=== PATIENT | female | born 1945 | race Two or more races ===

== ENCOUNTER 2024-07-07 15:09 | Inpatient (IN) | payer BC ==
[~2024-07-07] VITALS: Ht 162.6 cm; Wt 78.5 kg
[2024-07-07 16:28] LABS: BASOPHILS % (AUTO) 0.3 % (0.0-2.0); EOSINOPHILS % (AUTO) 0.4 % (0.0-6.0); HEMATOCRIT 44 % (33-45); HEMOGLOBIN 14.6 g/dL (11.5-14.8); LYMPHOCYTES # (AUTO) 0.5 K/uL (0.8-4.8); LYMPHOCYTES % (AUTO) 5.7 % (20.0-44.0); MEAN CORPUSCULAR HEMOGLOBIN 31 PG (26.0-33.0); MEAN CORPUSCULAR HGB CONC 33 g/dl (31.0-36.0); MEAN CORPUSCULAR VOLUME 92 fL (82-100); MONOCYTES # (AUTO) 1.2 K/uL (0.1-1.30); MONOCYTES % (AUTO) 12.1 % (2.0-12.0); NEUTROPHILS # (AUTO) 7.8 K/uL (1.8-8.9); NEUTROPHILS % (AUTO) 81.5 % (43.0-81.0); PLATELET COUNT (AUTO) 282 K/uL (150-450); RED BLOOD CELL COUNT(AUTO) 4.78 MIL/uL (4.0-5.2); RED CELL DISTRIBUTION WIDTH 13.9 % (11.5-15.0); WHITE BLOOD COUNT (AUTO) 9.5 K/uL (4.3-11.0)
[2024-07-07 16:42] LABS: CALCIUM, SERUM 9.4 mg/dL (8.5-10.1); CARBON DIOXIDE 28 mmol/L (21-32); CHLORIDE 99 mmol/L (98-107); CREATININE 0.9 mg/dL (0.6-1.3); GLUCOSE 152 mg/dL (74-106); INR 1.11 (0.91-1.10); PARTIAL THROMBOPLASTIN TIME 30.8 SEC (24.3-34.3); POTASSIUM 3.9 mmol/L (3.5-5.1); PROTHROMBIN TIME 11.7 SECS (9.2-11.1); SODIUM SERUM 135 mmol/L (136-145); UREA NITROGEN, BLOOD 13 mg/dL (7-18)
[2024-07-07 16:47] LABS: ACETAMINOPHEN 0 ug/ml (10-30); ALCOHOL, BLOOD < 3 mg/dL (0-10); SALICYLATE < 0.2 mg/dL (2.8-20.0)
[2024-07-07] MEDS: IV NS 0.9% 500 ML BAG IV ONE (18:16)
[2024-07-07 18:22] LABS: APPEARANCE,URINE CLEAR (CLEAR); BILIRUBIN,URINE NEGATIVE (NEGATIVE); BLOOD, URINE TRACE-INTA Ery/uL (NEGATIVE); COLOR,URINE YELLOW (YELLOW); KETONES,URINE NEGATIVE (NEGATIVE); LEUKOCYTE ESTERASE ,URINE NEGATIVE (NEGATIVE); NITRITE, URINE NEGATIVE (NEGATIVE); PROTEIN,URINE 1+ mg/dl (NEGATIVE); UGLUCOSE TRACE mg/dL (NEGATIVE)
[2024-07-07 18:37] LABS: AMPHETAMINE, URINE NEGATIVE (NEGATIVE); BARBITURATE, URINE NEGATIVE (NEGATIVE); BENZODIAZEPINE, URINE NEGATIVE (NEGATIVE); CANNABINOID, URINE NEGATIVE (NEGATIVE); COCCAINE, URINE NEGATIVE (NEGATIVE); OPIATE, URINE NEGATIVE (NEGATIVE); PHENCYCLIDINE SCREEN,URINE NEGATIVE (NEGATIVE)
[2024-07-07 18:50] LABS: ADD URINE CULTURE YES; BACTERIA,URINE 1+ /HPF (None Seen); RBC,URINE 0-2 /HPF (0-2); SQUAMOUS EPITHELIAL CELL,UR 0-2 /HPF (None Seen); WBC,URINE NONE SEEN /HPF (0-3)
[2024-07-07] MEDS ORDERED: MAGN400O6 PO (19:32)
[2024-07-07] MEDS ORDERED: TRAZ-182 PO (19:32)
[2024-07-07] MEDS ORDERED: ROSU40TA23 PO (19:32)
[2024-07-07] MEDS ORDERED: ACET325T53 PO (19:32)
[2024-07-07] MEDS ORDERED: CYAN500T64 PO (19:32)
[2024-07-07] MEDS ORDERED: BISA10SU11 RC (19:32)
[2024-07-07] MEDS ORDERED: IPRA3AMP23 NEB (19:32)
[2024-07-07] MEDS ORDERED: CETI10TA14 PO (19:32)
[2024-07-07] MEDS ORDERED: MONT10TA22 PO (19:32)
[2024-07-07] MEDS ORDERED: DONE5TAB34 PO (19:32)
[2024-07-07] MEDS ORDERED: CLOP75TA15 PO (19:32)
[2024-07-07] MEDS ORDERED: ALBU18HF2 IH (19:32)
[2024-07-07] MEDS ORDERED: MELA5TAB PO (19:32)
[2024-07-07] MEDS ORDERED: [UNRECOGNIZED DRUG - OTHER] PO (19:32)
[2024-07-07] MEDS ORDERED: MEMA10TA PO (19:32)
[2024-07-07] MEDS ORDERED: MAG-135 PO (19:32)
[2024-07-07] MEDS ORDERED: LOPE2CAP PO (19:32)
[2024-07-07] MEDS ORDERED: AL HYDROX PO PRN (21:00)
[2024-07-07] MEDS ORDERED: ONDANSETRON HCL/PF 4 MG/2 ML VIAL IVP PRN (21:00)
[2024-07-07] MEDS ORDERED: [UNRECOGNIZED DRUG - OTHER] PO PRN (21:00)
[2024-07-07] MEDS ORDERED: DEXTROSE 50%-WATER 50 ML DISP.SYRIN IV PRN (21:00)
[2024-07-07] MEDS ORDERED: MAGNESIUM HYDROXIDE 30 ML UDC PO PRN ×2 (21:00)
[2024-07-07] MEDS ORDERED: MAG HYDROX/AL HYDROX/SIMETH 30 ML UDC PO PRN (21:00)
[2024-07-07] MEDS ORDERED: SIMETH PO PRN (21:00)
[2024-07-07] MEDS ORDERED: MAG HYDROX PO PRN (21:00)
[2024-07-07] MEDS ORDERED: Z GUARD REMEDY 4 OZ OINT TP PRN (21:00)
[2024-07-07] MEDS ORDERED: Medication Not On Formulary EA (Melatonin 5 MG) PO SCH (22:00)
[2024-07-07 22:20] VITALS: BP 124/75; TEMP 98.4; O2SAT 95
[2024-07-07] MEDS: ENOXAPARIN SODIUM 40 MG/0.4 ML DISP.SYRIN SQ SCH (23:17)
[2024-07-07] MEDS: DONEPEZIL 5 MG TABLET PO SCH (23:17)
[2024-07-07] MEDS: CLOPIDOGREL BISULFATE 75 MG TABLET PO SCH (23:17)
[2024-07-07] MEDS: TRAZODONE 50 MG TABLET PO SCH (23:18)
[2024-07-07] MEDS: BLOOD SUGAR DIAGNOSTIC 1 EACH STRIP IN SCH (23:18)
[2024-07-07] MEDS: MONTELUKAST SODIUM (10MG) 10 MG TABLET PO SCH (23:19)
[2024-07-07] MEDS ORDERED: ALBUTEROL FS 2.5 MG/3 ML VIAL.NEB IH PRN (23:30)
[2024-07-07] MEDS: CEFTRIAXONE 1 G in IV D5W 50 ML IV SCH (23:41)
[2024-07-07] MEDS: CEFTRIAXONE 1GM BAG (ER ONLY) 50 ML IV ONE (23:42)
[2024-07-08] MEDS: IV D5/0.45 NACL 1,000 ML IV PRN (02:40)
[2024-07-08] MEDS: INSULIN REGULAR, HUMAN 100 UNIT/ML 3 ML VIAL SQ PRN (06:37)
[2024-07-08 06:52] LABS: BASOPHILS % (AUTO) 0.4 % (0.0-2.0); EOSINOPHILS % (AUTO) 0.5 % (0.0-6.0); HEMATOCRIT 42 % (33-45); HEMOGLOBIN 13.9 g/dL (11.5-14.8); LYMPHOCYTES # (AUTO) 0.7 K/uL (0.8-4.8); LYMPHOCYTES % (AUTO) 8.6 % (20.0-44.0); MEAN CORPUSCULAR HEMOGLOBIN 31 PG (26.0-33.0); MEAN CORPUSCULAR HGB CONC 33 g/dl (31.0-36.0); MEAN CORPUSCULAR VOLUME 93 fL (82-100); MONOCYTES # (AUTO) 0.8 K/uL (0.1-1.30); MONOCYTES % (AUTO) 9.6 % (2.0-12.0); NEUTROPHILS # (AUTO) 6.7 K/uL (1.8-8.9); NEUTROPHILS % (AUTO) 80.9 % (43.0-81.0); PLATELET COUNT (AUTO) 253 K/uL (150-450); RED BLOOD CELL COUNT(AUTO) 4.53 MIL/uL (4.0-5.2); RED CELL DISTRIBUTION WIDTH 13.8 % (11.5-15.0); WHITE BLOOD COUNT (AUTO) 8.3 K/uL (4.3-11.0)
[2024-07-08] MEDS: ACETAMINOPHEN 325 MG TABLET PO PRN (07:43)
[2024-07-08 07:55] LABS: ALANINE AMINOTRANSFERASE 55 U/L (12-78); ALBUMIN 2.7 g/dL (3.4-5.0); ALKALINE PHOSPHATASE 45 U/L (46-116); ASPARTATE AMINOTRANSFERASE 52 U/L (15-37); BILIRUBIN,TOTAL 0.6 mg/dL (0.2-1.0); CALCIUM, SERUM 8.9 mg/dL (8.5-10.1); CARBON DIOXIDE 24 mmol/L (21-32); CHLORIDE 103 mmol/L (98-107); CREATININE 0.8 mg/dL (0.6-1.3); GLUCOSE 143 mg/dL (74-106); MAGNESIUM 2.7 mg/dL (1.8-2.4); PHOSPHORUS 2.7 mg/dL (2.5-4.9); POTASSIUM 3.9 mmol/L (3.5-5.1); SODIUM SERUM 135 mmol/L (136-145); TOTAL PROTEIN, SERUM 7.1 g/dL (6.4-8.2); UREA NITROGEN, BLOOD 9 mg/dL (7-18)
[2024-07-08 08:00] VITALS: BP 124/81; TEMP 98.1; O2SAT 98
[2024-07-08] MEDS ORDERED: [UNRECOGNIZED DRUG - OTHER] PO SCH (09:00)
[2024-07-08] MEDS: CYANOCOBALAMIN 500 MCG TABLET PO SCH (09:28)
[2024-07-08] MEDS: MEMANTINE HCL 5 MG TABLET PO SCH (09:30)
[2024-07-08 12:22] LABS: CHOLESTEROL 106 mg/dL (<200); HDL CHOLESTEROL 51 mg/dL (40-60); LDL 48 mg/dL (0-99); TRIGLYCERIDES 54 mg/dL (30-150)
[2024-07-08 16:00] VITALS: BP 132/80; TEMP 98.2; O2SAT 96
[2024-07-08 20:00] VITALS: BP 120/71; TEMP 99.1; O2SAT 96
[2024-07-08] MEDS: IBUPROFEN 600 MG TABLET PO PRN (20:32)
[2024-07-09 08:00] VITALS: BP 111/66; TEMP 97.4; O2SAT 98
[2024-07-09 09:12] VITALS: BP 111/66; TEMP 97.4; O2SAT 98
[2024-07-09 10:00] LABS: CALCIUM, SERUM 9.4 mg/dL (8.5-10.1); CREATININE 0.7 mg/dL (0.6-1.3); MAGNESIUM 2.8 mg/dL (1.8-2.4); POTASSIUM 3.8 mmol/L (3.5-5.1)
[2024-07-09 10:01] LABS: BASOPHILS % (AUTO) 0.4 % (0.0-2.0); EOSINOPHILS # (AUTO) 0.2 K/uL (0.0-0.7); EOSINOPHILS % (AUTO) 2.7 % (0.0-6.0); HEMATOCRIT 44 % (33-45); HEMOGLOBIN 14.9 g/dL (11.5-14.8); LYMPHOCYTES # (AUTO) 0.6 K/uL (0.8-4.8); LYMPHOCYTES % (AUTO) 7.6 % (20.0-44.0); MEAN CORPUSCULAR HEMOGLOBIN 31 PG (26.0-33.0); MEAN CORPUSCULAR HGB CONC 34 g/dl (31.0-36.0); MEAN CORPUSCULAR VOLUME 93 fL (82-100); MONOCYTES # (AUTO) 0.7 K/uL (0.1-1.30); MONOCYTES % (AUTO) 9.3 % (2.0-12.0); NEUTROPHILS # (AUTO) 6.3 K/uL (1.8-8.9); PLATELET COUNT (AUTO) 279 K/uL (150-450); RED BLOOD CELL COUNT(AUTO) 4.77 MIL/uL (4.0-5.2); RED CELL DISTRIBUTION WIDTH 14.1 % (11.5-15.0); WHITE BLOOD COUNT (AUTO) 7.9 K/uL (4.3-11.0)
[2024-07-09] MEDS ORDERED: IOHEXOL-300 100 ML VIAL IV ONE (16:17)
[2024-07-09] MEDS ORDERED: IV NS 0.9% 250 ML IV ONE (16:17)
[2024-07-09 16:30] VITALS: BP 93/58; TEMP 98.8; O2SAT 96
[2024-07-09 20:00] VITALS: BP 122/67; TEMP 97.6; O2SAT 96
[2024-07-09] MEDS: COLCHICINE 0.6 MG TABLET PO ONE ×2 (20:20→21:59)
[2024-07-10 07:30] VITALS: BP 124/71; TEMP 97.2; O2SAT 99
[2024-07-10 07:40] LABS: BASOPHILS % (AUTO) 0.7 % (0.0-2.0); EOSINOPHILS # (AUTO) 0.2 K/uL (0.0-0.7); EOSINOPHILS % (AUTO) 3.4 % (0.0-6.0); HEMATOCRIT 41 % (33-45); HEMOGLOBIN 13.8 g/dL (11.5-14.8); LYMPHOCYTES # (AUTO) 0.5 K/uL (0.8-4.8); LYMPHOCYTES % (AUTO) 7.8 % (20.0-44.0); MEAN CORPUSCULAR HEMOGLOBIN 31 PG (26.0-33.0); MEAN CORPUSCULAR HGB CONC 33 g/dl (31.0-36.0); MEAN CORPUSCULAR VOLUME 92 fL (82-100); MONOCYTES # (AUTO) 0.5 K/uL (0.1-1.30); MONOCYTES % (AUTO) 7.1 % (2.0-12.0); NEUTROPHILS # (AUTO) 5.3 K/uL (1.8-8.9); PLATELET COUNT (AUTO) 310 K/uL (150-450); RED CELL DISTRIBUTION WIDTH 13.7 % (11.5-15.0); WHITE BLOOD COUNT (AUTO) 6.5 K/uL (4.3-11.0)
[2024-07-10 08:09] LABS: CALCIUM, SERUM 9.2 mg/dL (8.5-10.1); CREATININE 0.6 mg/dL (0.6-1.3); MAGNESIUM 2.8 mg/dL (1.8-2.4); PHOSPHORUS 3.5 mg/dL (2.5-4.9); POTASSIUM 3.5 mmol/L (3.5-5.1)
== END 2024-07-10 16:24 | disposition home health service (06) | DRG 553 ==
LOC: ER 15:23 → TELE 20:34 → MED 21:12
PROVIDERS: ADMIT Nurse Practitioner Acute Care; ATTEND Student in an Organized Health Care Education/Training Program
DX: M11.861 Other specified crystal arthropathies, right knee (principal); G93.41 Metabolic encephalopathy; E87.1 Hypo-osmolality and hyponatremia; E44.0 Moderate protein-calorie malnutrition; F03.90 Unspecified dementia, unspecified severity, without behavioral disturbance, psychotic disturbance, mood disturbance, and anxiety; Z20.822 Contact with and (suspected) exposure to COVID-19; E78.5 Hyperlipidemia, unspecified; Z90.10 Acquired absence of unspecified breast and nipple; Z79.899 Other long term (current) drug therapy; Z85.3 Personal history of malignant neoplasm of breast; Z79.51 Long term (current) use of inhaled steroids; Z79.02 Long term (current) use of antithrombotics/antiplatelets; B96.89 Other specified bacterial agents as the cause of diseases classified elsewhere; Z92.21 Personal history of antineoplastic chemotherapy; Z86.79 Personal history of other diseases of the circulatory system; R26.89 Other abnormalities of gait and mobility; R53.1 Weakness; E83.42 Hypomagnesemia; R73.03 Prediabetes; R32 Unspecified urinary incontinence; I10 Essential (primary) hypertension; Z96.659 Presence of unspecified artificial knee joint; Z98.890 Other specified postprocedural states
CPT/HCPCS: 36415; 70450-TC; 71045-TC; 73502; 73552; 73560-TC; 73700-TC; 73701-TC; 80048-TC; 80053-TC; 80061-TC; 81001; 82962-TC; 83735-TC; 84100-TC; 84443-TC; 84550-TC; 85025-TC; 85730-TC; 87081-TC; 87086-TC; 92526; 92611-TC; 97110-TC; 97116-TC; 97530-TC; 97535-TC; A4223; G0378; G0480; J0696; J1650; J1815; J3490; J7040; J7050; J7060; Q9967